=== PATIENT | female | born 1995 | race Caucasian/White ===

== ENCOUNTER 2017-05-12 09:41 | Emergency (ER) | payer SELFPAY ==
[2017-05-12] MEDS ORDERED: Lidocaine 1% 20 ML MDV ONE (09:49)
== END 2017-05-12 10:12 | disposition home or self-care (01) ==
LOC: BURERS 09:41
DX: S61.216A Laceration without foreign body of right little finger without damage to nail, initial encounter (principal); W26.8XXA Contact with other sharp object(s), not elsewhere classified, initial encounter; Y92.69 Other specified industrial and construction area as the place of occurrence of the external cause; Y99.0 Civilian activity done for income or pay
CPT/HCPCS: 12001; J2001